=== PATIENT | male | born 1990 | race Caucasian/White ===

== ENCOUNTER 2023-06-24 05:15 | Emergency (ER) | payer SELFPAY ==
[~2023-06-24] VITALS: Ht 172.7 cm; Wt 74.8 kg
[2023-06-24 05:21] VITALS: BP 134/93; PULSE 120; RESP 17; TEMP 98; O2SAT 97
--- NOTE | 2023-06-24 05:25 | NUR ---
to lobby a/w bed ambulatory
--- NOTE | 2023-06-24 05:54 | NUR ---
pt seen talking to self and laughing
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
--- NOTE | 2023-06-24 07:22 | NUR ---
Pt report given to SHUKRI MEEK. SHUKRI MEEK VERBALIZED UNDERSTANDING AND NO FURTHER QUESTION. Transfer of care at this time.
--- NOTE | 2023-06-24 07:22 | NUR ---
REPORT RECEIVED FROM FLIP KING. ASSUMED CARE AT THIS TIME
--- NOTE | 2023-06-24 07:27 | NUR ---
xray at bedside
[2023-06-24] MEDS ORDERED: LORazepam 1 MG TAB PO ONE (07:30)
[2023-06-24 07:35] VITALS: BP 119/69; PULSE 112; RESP 17; TEMP 98
[2023-06-24 08:26] VITALS: O2SAT 98
--- NOTE | 2023-06-24 08:55 | NUR ---
pt w/ increased restlessness. reorientated to bed.
[2023-06-24] MEDS ORDERED: IBUP-2213 PO (09:42)
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
--- NOTE | 2023-06-24 10:15 | NUR ---
PD AT BEDSIDE
--- NOTE | 2023-06-24 10:31 | NUR ---
The patient's care was reviewed and supervised by SANA GANDARA RN.
--- NOTE | 2023-06-24 10:31 | NUR ---
Patient discharged with v/s stable. Written and verbal after care instructions given and explained. Ambulatory with steady gait. ID band removed. Patient advised to follow up with PMD. Rx of IBUPROFEN given. Opportunity to ask questions provided and answered. PT REFUSING TO SIGN PAPERWORK WALKED OUT BY JEN ARMAS
== END 2023-06-24 10:31 | disposition home or self-care (01) ==
LOC: MED 05:15
DX: S52.692A Other fracture of lower end of left ulna, initial encounter for closed fracture (principal); Y08.89XA Assault by other specified means, initial encounter; Y93.89 Activity, other specified; Y92.89 Other specified places as the place of occurrence of the external cause; Y99.8 Other external cause status
CPT/HCPCS: 73090; 73110; 73130; 99285; Q0092